=== PATIENT | female | born 1930 | race African-American/Black ===

== ENCOUNTER 2018-07-10 11:08 | Inpatient (IN) | payer OTHER ==
[~2018-07-10] VITALS: Ht 162.6 cm; Wt 50.5 kg
[~2018-07-10 11:08] MED LIST: ASC250 PO; DOCU-138 PO; FERR324T17 PO; HYDR-3927 PO; NIFE60TA35 PO; NIFE60TA83
[2018-07-10 11:44] LABS: BASOPHILS % 0.9 % (0.0-2.0); EOSINOPHILS % 4.7 % (0.0-5.0); HEMATOCRIT. 36.7 % (36.0-48.0); HEMOGLOBIN. 12.4 g/dL (12.0-16.0); LYMPHOCYTES % 28.7 % (20.0-50.0); MEAN CORPUSCULAR HEMOGLOBIN 31.6 pg (28.0-32.0); MEAN CORPUSCULAR VOLUME 93.9 fL (81.0-99.0); MONOCYTES % 7.7 % (2.0-8.0); PLATELET 159 x1000/uL (130-400); RED BLOOD CELL COUNT 3.91 mill/uL (4.2-5.4); RED CELL DISTRIBUTION WIDTH 13.7 % (11.6-14.6)
[2018-07-10 11:50] LABS: CHLORIDE 100 mEq/L (98-107)
[2018-07-10 11:51] LABS: INR 1.1
[2018-07-10 11:53] LABS: ETHANOL BLOOD < 10 mg/dL
[2018-07-10 11:57] LABS: LDL CHOLESTEROL 87 mg/dL (5-100)
[2018-07-10 12:49] LABS: CLARITY URINE CLEAR (CLEAR); COLOR URINE YELLOW (YELLOW); KETONES URINE NEGATIVE (NEGATIVE); LEUKOCYTE ESTERASE URINE NEGATIVE (NEGATIVE); NITRITE URINE NEGATIVE (NEGATIVE); OCCULT BLOOD URINE NEGATIVE (NEGATIVE); PROTEIN URINE NEGATIVE (NEGATIVE); SPECIFIC GRAVITY URINE 1.014 (1.005-1.030); UROBILINOGEN URINE 0.2 E.U./dL (0.2-1.0)
[2018-07-10] MEDS ORDERED: ASPIRIN 325MG TABLET PO ONE (13:00)
[2018-07-10 13:05] LABS: *AMPHETAMINES SCREEN URINE NEGATIVE (NEGATIVE); *BARBITURATES SCREEN URINE NEGATIVE (NEGATIVE); *BENZODIAZEPINES SCREEN URINE NEGATIVE (NEGATIVE); *COCAINE SCREEN URINE NEGATIVE (NEGATIVE)
[2018-07-10 13:06] LABS: CANNABINOID URINE SCREEN NEGATIVE (NEGATIVE); METHADONE URINE SCREEN NEGATIVE (NEGATIVE); OPIATES URINE SCREEN NEGATIVE (NEGATIVE); PHENCYCLIDINE URINE SCREEN NEGATIVE (NEGATIVE)
[2018-07-10] MEDS ORDERED: IOHEXOL-350 100 ML BOTTLE ONE (13:34)
[2018-07-10] MEDS ORDERED: ENOXAPARIN 40MG/0.4ML SYR SUBCUT SCH (17:30)
[2018-07-10] MEDS ORDERED: NIFE90TA2 PO (17:48)
[2018-07-10] MEDS ORDERED: IRBE150T51 PO (17:48)
[2018-07-10] MEDS ORDERED: LOSA50TA20 MT (17:48)
[2018-07-10] MEDS ORDERED: METO-396 MT (17:48)
[2018-07-10] MEDS ORDERED: POTA10CA42 MT (17:48)
[2018-07-10] MEDS ORDERED: ASCORBIC ACID 250 MG TABLET PO SCH (17:50)
[2018-07-10 18:00] VITALS: BP 155/71
[2018-07-10] MEDS: MECLIZINE 25MG TABLET PO SCH ×2 (18:35→23:15)
[2018-07-10 20:00] VITALS: BP 162/66
[2018-07-10] MEDS ORDERED: PNEUMOCOCCAL 23-VAL P-SAC VAC 0.5 ML IM ONE (21:45)
[2018-07-10] MEDS: SODIUM CHLORIDE 0.9% INJ 3ML FLUSH IVF SCH (22:00)
[2018-07-11] VITALS (7 sets, daily range): BP systolic 135–160; BP diastolic 62–80
[2018-07-11] MEDS: SODIUM CHLORIDE 0.9% INJ 3ML FLUSH IVF SCH (06:20)
[2018-07-11] MEDS: MECLIZINE 25MG TABLET PO SCH ×2 (06:21→12:07)
[2018-07-11 08:01] LABS: BASOPHILS % 0.9 % (0.0-2.0); EOSINOPHILS % 5.1 % (0.0-5.0); HEMATOCRIT. 32.3 % (36.0-48.0); HEMOGLOBIN. 11.1 g/dL (12.0-16.0); LYMPHOCYTES % 31.5 % (20.0-50.0); MEAN CORPUSCULAR HEMOGLOBIN 32.1 pg (28.0-32.0); MEAN CORPUSCULAR VOLUME 93.4 fL (81.0-99.0); MEAN PLATELET VOLUME 9.5 fl (7.4-10.4); MONOCYTES % 12.4 % (2.0-8.0); NEUTROPHILS % 50.1 % (40.0-76.0); PLATELET 149 x1000/uL (130-400); RED BLOOD CELL COUNT 3.46 mill/uL (4.2-5.4); RED CELL DISTRIBUTION WIDTH 13.6 % (11.6-14.6)
[2018-07-11] MEDS ORDERED: ASPIRIN 325MG EC TABLET PO SCH (09:00)
[2018-07-11] MEDS ORDERED: DOCUSATE SODIUM 100MG CAPSULE PO SCH (09:00)
[2018-07-11 09:38] LABS: CHLORIDE 101 mEq/L (98-107)
[2018-07-11 09:47] LABS: LDL CHOLESTEROL 85 mg/dL (5-100)
[2018-07-11 09:49] LABS: HDL CHOLESTEROL 70 mg/dL (40-59)
[2018-07-11] MEDS ORDERED: POTASSIUM CHLORIDE 20MEQ TABLET SR PO SCH (11:15)
== END 2018-07-11 14:06 | disposition home or self-care (01) | DRG 149 ==
LOC: ER 11:12 → 6WST 12:58 → EDBEDREQTM 13:02 → EDBEDREQ 13:02 → EDBEDREQSVC 13:02 → ENRESERV 15:56
PROVIDERS: ADMIT Ophthalmology; ATTEND Ophthalmology
DX: H83.09 Labyrinthitis, unspecified ear (principal); Z68.1 Body mass index [BMI] 19.9 or less, adult; H54.61 Unqualified visual loss, right eye, normal vision left eye; I10 Essential (primary) hypertension; H93.19 Tinnitus, unspecified ear; I44.0 Atrioventricular block, first degree; D64.9 Anemia, unspecified; R63.0 Anorexia; Z83.3 Family history of diabetes mellitus; Z79.899 Other long term (current) drug therapy
CPT/HCPCS: 36415; 70496; 70551; 71045; 80048; 80061; 80305; 82962; 83036; 83721; 84484; 93005; 97162; 99291; G0482; J1650; J8597; Q9967

== ENCOUNTER 2019-01-10 16:50 | Emergency (ER) | payer OTHER ==
[~2019-01-10] VITALS: Ht 162.6 cm; Wt 63.0 kg
[~2019-01-10 16:50] MED LIST changes: +IRBE150T51 PO; +LOSA50TA41 MT; +METO-396 MT; +NIFE90TA2 PO; +POTA10CA42 MT
[2019-01-10 18:16] LABS: CHLORIDE 102 mEq/L (98-107); EOSINOPHILS % 3.8 % (0.0-5.0); HEMATOCRIT. 35.1 % (36.0-48.0); HEMOGLOBIN. 11.9 g/dL (12.0-16.0); LYMPHOCYTES % 25.6 % (20.0-50.0); MEAN CORPUSCULAR HEMOGLOBIN 31.4 pg (28.0-32.0); MEAN CORPUSCULAR VOLUME 92.8 fL (81.0-99.0); MEAN PLATELET VOLUME 9.7 fl (7.4-10.4); MONOCYTES % 9.9 % (2.0-8.0); NEUTROPHILS % 59.7 % (40.0-76.0); PLATELET 136 x1000/uL (130-400); RED BLOOD CELL COUNT 3.78 mill/uL (4.2-5.4); RED CELL DISTRIBUTION WIDTH 15.4 % (11.6-14.6)
[2019-01-10 20:56] LABS: CLARITY URINE CLEAR (CLEAR); COLOR URINE YELLOW (YELLOW); KETONES URINE NEGATIVE (NEGATIVE); LEUKOCYTE ESTERASE URINE NEGATIVE (NEGATIVE); NITRITE URINE NEGATIVE (NEGATIVE); OCCULT BLOOD URINE TRACE (NEGATIVE); PROTEIN URINE NEGATIVE (NEGATIVE); SPECIFIC GRAVITY URINE 1.005 (1.005-1.030); UROBILINOGEN URINE 0.2 E.U./dL (0.2-1.0)
[2019-01-10 22:12] VITALS: BP 155/73
== END 2019-01-10 22:12 | disposition home or self-care (01) ==
LOC: ER 16:59
DX: I11.0 Hypertensive heart disease with heart failure (principal); I50.9 Heart failure, unspecified; I44.0 Atrioventricular block, first degree; I49.1 Atrial premature depolarization; D64.9 Anemia, unspecified
CPT/HCPCS: 36415; 71045; 83880; 84484; 93005; 99284

== ENCOUNTER 2019-07-22 01:50 | Inpatient (IN) | payer OTHER ==
[~2019-07-22] VITALS: Ht 160 cm; Wt 61.2 kg
[~2019-07-22 01:50] MED LIST changes: +NIFE60TA82; -NIFE60TA83
[2019-07-22 03:08] LABS: BASOPHILS % 1.1 % (0.0-2.0); EOSINOPHILS % 3.9 % (0.0-5.0); HEMATOCRIT. 37.2 % (36.0-48.0); HEMOGLOBIN. 12.3 g/dL (12.0-16.0); MEAN CORPUSCULAR HEMOGLOBIN 30.8 pg (28.0-32.0); MEAN CORPUSCULAR VOLUME 92.8 fL (81.0-99.0); MEAN PLATELET VOLUME 10.5 fl (7.4-10.4); MONOCYTES % 10.1 % (2.0-8.0); NEUTROPHILS % 59.9 % (40.0-76.0); PLATELET 114 x1000/uL (130-400); RED BLOOD CELL COUNT 4.01 mill/uL (4.2-5.4); RED CELL DISTRIBUTION WIDTH 14.6 % (11.6-14.6)
[2019-07-22 03:12] LABS: CHLORIDE 102 mEq/L (98-107)
[2019-07-22 03:17] LABS: ETHANOL BLOOD < 10 mg/dL
[2019-07-22] MEDS ORDERED: FUROSEMIDE 40MG/4ML VIAL IV ONE (04:15)
[2019-07-22] MEDS ORDERED: NITROGLYCERIN OINT 1GM/INCH UDPKT TD ONE (04:15)
[2019-07-22] MEDS ORDERED: METOPROLOL TARTRATE 25MG TABLET PO NR (15:30)
[2019-07-22] MEDS ORDERED: IPRATROPIUM/ALBUTEROL 0.5-3(2.5)MG/3ML NEB HHN PRN (15:30)
[2019-07-22] MEDS ORDERED: ACETAMINOPHEN 325MG TABLET PO PRN (15:30)
[2019-07-22] MEDS ORDERED: CLONIDINE 0.1MG TABLET PO PRN (15:30)
[2019-07-22] MEDS ORDERED: DOCUSATE SODIUM 100MG CAPSULE PO PRN (15:30)
[2019-07-22] MEDS ORDERED: FUROSEMIDE 40MG/4ML VIAL IVP NR (16:00)
[2019-07-22] MEDS ORDERED: POTASSIUM CHLORIDE 20MEQ TABLET SR PO NR (16:00)
[2019-07-22] MEDS ORDERED: DOCUSATE SODIUM 100MG CAPSULE PO NR (16:00)
[2019-07-22] MEDS ORDERED: NIFEDIPINE XL 90MG TAB PO NR (16:00)
[2019-07-22] MEDS ORDERED: ASCORBIC ACID 250 MG TABLET PO NR (16:00)
[2019-07-22 16:23] LABS: BG CARBOXYHEMOGLOBIN 0.6 % (0.5-1.5); BG DEOXYHEMOGLOBIN 1.2 % (0.0-5.0); BG FRACTION INSPIRED OXYGEN 28; BG HCO3 ACT 31.4 mmol/L (22.0-26.0); BG METHEMOGLOBIN 0.3 % (0.0-1.5); BG OXYGEN SATURATION 98.8 % (92.0-98.5); BG OXYHEMOGLOBIN 97.9 % (94.0-97.0); BG PCO2 54.7 mmHg (35.0-45.0); BG PH 7.377 (7.350-7.450); BG PO2 150.5 mmHg (75.0-100.0); BG SAMPLE SITE RIGHT RADIAL; BG TOTAL HEMOGLOBIN 11.8 g/dL (12.0-18.0); BG VENT MODE NASAL CANNULA
[2019-07-22] MEDS: POTASSIUM CHLORIDE 20MEQ TABLET SR PO SCH (17:00)
[2019-07-22] MEDS: ASCORBIC ACID 250 MG TABLET PO SCH ×2 (17:00→19:42)
[2019-07-22] MEDS ORDERED: ENOXAPARIN 30MG/0.3ML SYR SUBCUT SCH (17:45)
[2019-07-22 18:00] VITALS: BP 136/69
[2019-07-22] MEDS ORDERED: IOHEXOL-350 100 ML BOTTLE ONE (19:01)
[2019-07-22] MEDS: LOSARTAN POTASSIUM 25 MG TABLET PO SCH (19:39)
[2019-07-22] MEDS: FUROSEMIDE 40MG/4ML VIAL IVP SCH (19:39)
[2019-07-22 20:00] VITALS: BP 204/98
[2019-07-22] MEDS ORDERED: LOSARTAN POTASSIUM 50 MG TABLET PO SCH (21:00)
[2019-07-22] MEDS: SODIUM CHLORIDE 0.9% INJ 3ML FLUSH IVF SCH (21:46)
[2019-07-22 23:56] VITALS: BP 127/59
[2019-07-23 04:00] VITALS: BP 117/56
[2019-07-23] MEDS: SODIUM CHLORIDE 0.9% INJ 3ML FLUSH IVF SCH (05:31)
[2019-07-23 07:47] LABS: BASOPHILS % 1.2 % (0.0-2.0); EOSINOPHILS % 7.9 % (0.0-5.0); HEMATOCRIT. 34.9 % (36.0-48.0); HEMOGLOBIN. 11.7 g/dL (12.0-16.0); LYMPHOCYTES % 23.9 % (20.0-50.0); MEAN CORPUSCULAR HEMOGLOBIN 31.3 pg (28.0-32.0); MEAN CORPUSCULAR VOLUME 93.1 fL (81.0-99.0); MEAN PLATELET VOLUME 10.6 fl (7.4-10.4); MONOCYTES % 12.4 % (2.0-8.0); NEUTROPHILS % 54.6 % (40.0-76.0); PLATELET 109 x1000/uL (130-400); RED BLOOD CELL COUNT 3.75 mill/uL (4.2-5.4)
[2019-07-23 08:00] VITALS: BP 151/71
[2019-07-23 08:36] LABS: FOLIC ACID (FOLATE) SERUM 13.9 ng/mL (>5.38)
[2019-07-23] MEDS: POTASSIUM CHLORIDE 20MEQ TABLET SR PO SCH (08:53)
[2019-07-23] MEDS: LOSARTAN POTASSIUM 25 MG TABLET PO SCH (08:55)
[2019-07-23] MEDS ORDERED: FUROSEMIDE 40MG/4ML VIAL IVP SCH (09:00)
[2019-07-23] MEDS ORDERED: NIFEDIPINE XL 90MG TAB PO SCH (09:00)
[2019-07-23] MEDS ORDERED: DOCUSATE SODIUM 100MG CAPSULE PO SCH (09:00)
[2019-07-23] MEDS ORDERED: POTASSIUM CHLORIDE 20MEQ TABLET SR PO SCH (09:00)
[2019-07-23 09:11] LABS: CHLORIDE 102 mEq/L (98-107)
[2019-07-23] MEDS: FUROSEMIDE 40MG/4ML VIAL IVP SCH (09:15)
[2019-07-23 09:20] LABS: LDL CHOLESTEROL 64 mg/dL (5-100)
[2019-07-23 09:24] LABS: HDL CHOLESTEROL 87 mg/dL (40-59)
[2019-07-23 12:00] VITALS: BP_SYST 120; BP_SYST 140; BP_DIAS 72; BP_DIAS 78
[2019-07-23] MEDS ORDERED: SPIRONOLACTONE 25MG TABLET PO SCH (12:30)
[2019-07-23] MEDS: ASCORBIC ACID 250 MG TABLET PO SCH (13:10)
[2019-07-23 16:00] VITALS: BP 141/60
[2019-07-24] MEDS ORDERED: LOSARTAN POTASSIUM 50 MG TABLET PO SCH (09:00)
== END 2019-07-23 16:39 | disposition home health service (06) | DRG 293 ==
LOC: ER 01:50 → 7WST 01:51 → ENRESERV 16:18
PROVIDERS: ADMIT Ophthalmology; ATTEND Ophthalmology
DX: I11.0 Hypertensive heart disease with heart failure (principal); F03.90 Unspecified dementia, unspecified severity, without behavioral disturbance, psychotic disturbance, mood disturbance, and anxiety; I42.9 Cardiomyopathy, unspecified; E87.6 Hypokalemia; D69.6 Thrombocytopenia, unspecified; M19.90 Unspecified osteoarthritis, unspecified site; I34.0 Nonrheumatic mitral (valve) insufficiency; I27.20 Pulmonary hypertension, unspecified; Z79.899 Other long term (current) drug therapy; I50.23 Acute on chronic systolic (congestive) heart failure; R00.1 Bradycardia, unspecified
CPT/HCPCS: 36415; 36600; 71045; 71275; 80048; 80053; 80061; 80320; 82375; 82607; 82746; 82805; 83880; 84443; 84484; 85025; 85379; 93005; 93306; 96374; 96376; 99285; J1650; J1940; Q9967; G0480